=== PATIENT | female | born 1975 | race Caucasian/White ===

== ENCOUNTER 2016-08-13 10:24 | Outpatient (RCR) | payer OTHER ==
--- OUTSIDE RECORDS SUMMARY | 2016-07-01 09:02 | XMS REPORT | Continuity of Care Document ---
Author Author [facility] Organization [facility] Address Unknown Phone Unavailable Care Team Providers Care Drying Machine Operator Name Role Phone AMARILYS GALLARDO MD PCP Insurance Providers Payer Name Policy Number Subscriber Name Relationship [employer]ETNA [id number] Izzy Gonsalves Self / Same As Patient Advance Directives Directive Response Recorded Date/Time Advance Directives No 08/19/15 11:15am Organ Donor Yes 08/19/15 11:15am Problems Active Problems Medical Problem Onset Date Status Threatened miscarriage in early Unknown Acute Vaginal bleeding in patient at less than 20 weeks gestation Unknown Acute Medications Current Home Medications Medication Dose Units Route Directions Days/Qty Instructions Start Date Pnv95/Ferrous Fumarate/Fa 1 Each 1 Each Oral Daily 08/18/15 Ibuprofen 600 Mg 600 Mg Oral Every 6 Hours for Pain 60 08/19/15 Acetaminophen With Codeine 1 Each 1 Each Oral Every 4HRS as needed for Pain 15 08/19/15 Social History Social History Problem Response Recorded Date/Time Alcohol Use Denies Use 08/19/2015 11:15am Recreational Drug Use No 08/19/2015 11:15am Recent Foreign Travel N SEE [place]ADAN 01/19/2016 10:08am Sexually Transmitted Disease No 08/19/2015 11:15am Sexually Transmitted Disease No 08/19/2015 11:15am Hospital Discharge Instructions No hospital discharge instructions. Plan of Care Prescriptions See Medication Section Functional Status No functional status results. Allergies, Adverse Reactions, Alerts No known allergies. Immunizations No immunization records. Vital Signs No known vital signs results. Results Laboratory Results Test Name Result Units Flags Reference Collection Date/Time Result Date/ Time Comments White Blood Count 5.3 10^3/uL 4.3-11.0 01/19/2016 10:13am 01/19/2016 10 :19am Red Blood Count 4.10 10^6/uL L 4.35-5.85 01/19/2016 10:01/19/2016 10 :19am Hemoglobin 11.5 G/DL 11.5-16.0 01/19/2016 10:01/19/2016 10:19am Hematocrit 35 % 35-52 01/19/2016 10:01/19/2016 10:19am Mean Corpuscular Volume 86 FL 80-99 01/19/2016 10:01/19/2016 10: 19am Mean Corpuscular Hemoglobin 28 PG 25-34 01/19/2016 10:01/19/2016 10:19am Mean Corpuscular Hemoglobin Concent 33 G/DL 32-36 01/19/2016 10: 10:19am Red Cell Distribution Width 15.0 % H 10.0-14.5 01/19/2016 10:2015 10:19am Platelet Count 170 10^3/uL 130-400 01/19/2016 10:01/19/2016 10: 19am Mean Platelet Volume 9.3 FL 7.4-10.4 01/19/2016 10:01/19/2016 10: 19am Neutrophils (%) (Auto) 74 % 42-75 01/19/2016 10:01/19/2016 10: 19am Lymphocytes (%) (Auto) 17 % 12-44 01/19/2016 10:01/19/2016 10: 19am Monocytes (%) (Auto) 8 % 0-12 01/19/2016 10:01/19/2016 10:19am Eosinophils (%) (Auto) 1 % 0-10 01/19/2016 10:01/19/2016 10:19am Basophils (%) (Auto) 1 % 0-10 01/19/2016 10:1301/19/2016 10:19am Neutrophils # (Auto) 3.9 X 10^3 1.8-7.8 01/19/2016 10:1301/19/2016 10:19am Lymphocytes # (Auto) 0.9 X 10^3 L 1.0-4.0 01/19/2016 10:01/19/2016 10:19am Monocytes # (Auto) 0.4 X 10^3 0.0-1.0 01/19/2016 10:1301/19/2016 10: 19am Eosinophils # (Auto) 0.0 10^3/uL 0.0-0.3 01/19/2016 10:1301/19/2016 10:19am Basophils # (Auto) 0.0 10^3/uL 0.0-0.1 01/19/2016 10:am 01/19/2016 10 :19am Neutrophils % (Manual) 66 % 01/12/2016 9:40am 01/12/2016 4:07pm Band Neutrophils 0 % 01/12/2016 9:40am 01/12/2016 4:07pm Lymphocytes % (Manual) 25 % 01/12/2016 9:40am 01/12/2016 4:07pm Monocytes % (Manual) 6 % 01/12/2016 9:40am 01/12/2016 4:07pm Eosinophils % (Manual) 1 % 01/12/2016 9:40am 01/12/2016 4:07pm Basophils % (Manual) 0 % 01/12/2016 9:40am 01/12/2016 4:07pm Reactive Lymphocytes 2 % 01/12/2016 9:40am 01/12/2016 4:07pm Anisocytosis SLIGHT 01/12/2016 9:40am 01/12/2016 4:07pm Rouleau SLIGHT 01/12/2016 9:40am 01/12/2016 4:07pm RARE GIANT PLATELET OBSERVED ON DIFFERENTIAL. Absolute Reticulocyte Count 66 10e9/L 24-90 01/12/2016 9:40am 2015 9:57am Percent Reticulocyte Count 1.50 % 0.50-2.40 01/12/2016 9:40am 2015 9:57am Sodium Level 138 MMOL/L 135-145 01/12/2016 9:4001/12/2016 10:11am Potassium Level 4.6 MMOL/L 3.6-5.0 01/12/2016 9:40am 01/12/2016 10: 11am Chloride Level 107 MMOL/L 98-107 01/12/2016 9:40am 01/12/2016 10:11am Carbon Dioxide Level 23 MMOL/L 21-32 01/12/2016 9:40am 01/12/2016 10: 11am Anion Gap 8 MMOL/L 5-14 01/12/2016 9:40am 01/12/2016 10:11am Blood Urea Nitrogen 15 MG/DL 7-18 01/12/2016 9:40am 01/12/2016 10:11am Creatinine 0.80 MG/DL 0.60-1.30 01/12/2016 9:40am 01/12/2016 10:11am BUN/Creatinine Ratio 19 01/12/2016 9:40am 01/12/2016 10:11am Estimat Glomerular Filtration Rate > 60 01/12/2016 9:40am 2015 10:11am GFR INTERPRETIVE DATA UNITS FOR ESTIMATED GFR (eGFR): mL/min/1.73 M2 REFERENCE RANGE FOR ESTIMATED GFR (eGFR) eGFR NORMAL eGFR >60 MODERATELY DECREASED eGFR 30-59 SEVERLY DECREASED eGFR 15-29 KIDNEY FAILURE <15 (OR DIALYSIS) Glucose Level 78 MG/DL 70-105 01/12/2016 9:4001/12/2016 10:11am Calcium Level 8.8 MG/DL 8.5-10.1 01/12/2016 9:40am 01/12/2016 10:11am Total Bilirubin 0.6 MG/DL 0.1-1.0 01/12/2016 9:40am 01/12/2016 10:11am Alkaline Phosphatase 40 U/L 40-136 01/12/2016 9:40am 01/12/2016 10: 11am Aspartate Amino Transf (AST/SGOT) 17 U/L 5-34 01/12/2016 9:40am 2015 10:11am Alanine Aminotransferase (ALT/SGPT) 13 U/L 0-55 01/12/2016 9:40am 01/11 10:11am Lactate Dehydrogenase 166 U/L 125-220 01/12/2016 9:40am 01/12/2016 10: 11am Total Protein 6.6 G/DL 6.4-8.2 01/12/2016 9:40am 01/12/2016 10:11am Albumin 4.2 G/DL 3.2-4.5 01/12/2016 9:40am 01/12/2016 10:11am Ferritin 239 ng/mL H 15-150 02/26/2016 9:46am 02/27/2016 6:44am Iron Level 95 ug/dL 35-180 01/12/2016 9:40am 01/13/2016 8:45am Transferrin % Saturation 25 % 15-50 01/12/2016 9:40am 01/13/2016 8: 45am Total Iron Binding Capacity 379 ug/dL 280-380 01/12/2016 9:40am 2015 8:45am Unsaturated Iron Binding Capacity 284 ug/dL 55-450 01/12/2016 9:40am 8:46am Test performed at [facility], CLIA# [id number] Total Protein (PEP) 6.5 g/dL L 6.7-8.3 01/12/2016 9:40am 01/13/2016 8: 54am Test performed at [facility], CLIA# [id number] Protein Electrophoresis Pathologist SEE PATH REPORT 01/12/2016 9: 40am 01/15/2016 9:37am Protein Electrophoresis Note [id number] 01/12/2016 9:40am 2015 9:37am Free Sebastian Light Chains, Quant 11.84 mg/L 3.30-19.40 01/12/2016 9:40am 01/13/2016 8:54am Free Lambda Light Chains, Quant 9.35 mg/L 5.71-26.30 01/12/2016 9:40am 01/13/2016 8:54am Free Sebastian/Lambda Light Chain Ratio 1.27 ratio 0.26-1.65 01/12/2016 9: 40am 01/13/2016 8:54am Test performed at [facility], CLIA# [id number] Pathology Specimen Result FOOTNOTE 01/12/2016 9:40am 01/14/2016 3: 26pm IZZY GONSALVES Clinical Pathology Report Accession Number Collected Date/Time Verified Date/Time [id number] 01/12/16 1:00:00 PM 01/14/16 2:27:31 PM Interpretation Serum protein electrophoresis and free light chain analysis - Normal findings, with no evidence of a monoclonal gammopathy. ICD-10: E88.09 Dane Denise M.D. Pathologist (Electronic Signature) BD 01/14/2016 Performing Location: [facility], [address] [place] [address] Electrophoresis FRACTION G/DL NORMAL RANGE TOTAL PROTEIN L 6.5 6.7 - 8.3 ALBUMIN 3.9 3.5 - 4.8 ALPHA-1 0.3 0.2 - 0.5 ALPHA-2 0.6 0.5 - 1.2 BETA 0.7 0.6 - 1.2 GAMMA 0.9 0.5 - 1.5 Serum Free Light Chain Analysis FRACTION MG/L NORMAL RANGE Free Sebastian 11.84 3.30 - 19.40 Free Lambda 9.35 5.71 - 26.30 Free Ratio 1.27 0.26 - 1.65 Specimen Serum Procedures No known history of procedures. Encounters Encounter Location Arrival/Admit Date Discharge/Depart Date Attending Provider Discharged Recurring [facility] 02/26/16 9:35am 11:59pm ELIEZER ROBLES
[2016-07-01 09:14] LABS: BASOPHILS % (AUTO) 1 % (0-10); EOSINOPHILS % (AUTO) 1 % (0-10); LYMPHOCYTES % (AUTO) 29 % (12-44); MEAN CORPUSCULAR HEMOGLOBIN 32 PG (25-34); MEAN CORPUSCULAR HGB CONC 35 G/DL (32-36); MEAN CORPUSCULAR VOLUME 91 FL (80-99); MEAN PLATELET VOLUME 9.7 FL (7.4-10.4); MONOCYTES # (AUTO) 0.3 X 10^3 (0.0-1.0); MONOCYTES % (AUTO) 9 % (0-12); NEUTROPHILS % (AUTO) 60 % (42-75); PLATELET COUNT 153 10^3/uL (130-400); RED BLOOD COUNT 3.93 10^6/uL (4.35-5.85); RED CELL DISTRIBUTION WIDTH 12.4 % (10.0-14.5); WHITE BLOOD COUNT 3.3 10^3/uL (4.3-11.0)
[2016-07-01 10:01] LABS: ALANINE AMINOTRANSFERASE 14 U/L (0-55); ANION GAP 6 MMOL/L (5-14); ASPARTATE AMINO TRANSFERASE 17 U/L (5-34); BILIRUBIN,TOTAL 0.4 MG/DL (0.1-1.0); BLOOD UREA NITROGEN 10 MG/DL (7-18); BUN/CREATININE RATIO 12; CALCIUM 8.5 MG/DL (8.5-10.1); CARBON DIOXIDE 24 MMOL/L (21-32); CHLORIDE 109 MMOL/L (98-107); CREATININE SERUM 0.81 MG/DL (0.60-1.30); GFR ESTIMATED > 60; GLUCOSE 84 MG/DL (70-105); POTASSIUM 4.4 MMOL/L (3.6-5.0); SODIUM 139 MMOL/L (135-145)
[~2016-08-13 10:24] MED LIST: ACET-789 PO; FERRIC CARBOXYMALTOSE (CANCER) 750 MG in NS (IVPB) CANCER CENTER 250 ML IV SCH; IBUP-1773 PO; PNV91TAB3 PO
[2016-08-13 11:23] LABS: BASOPHILS % (AUTO) 1 % (0-10); EOSINOPHILS # (AUTO) 0.1 10^3/uL (0.0-0.3); EOSINOPHILS % (AUTO) 1 % (0-10); LYMPHOCYTES # (AUTO) 1.2 X 10^3 (1.0-4.0); LYMPHOCYTES % (AUTO) 25 % (12-44); MEAN CORPUSCULAR HEMOGLOBIN 32 PG (25-34); MEAN CORPUSCULAR HGB CONC 35 G/DL (32-36); MEAN CORPUSCULAR VOLUME 91 FL (80-99); MEAN PLATELET VOLUME 9.7 FL (7.4-10.4); MONOCYTES # (AUTO) 0.4 X 10^3 (0.0-1.0); MONOCYTES % (AUTO) 8 % (0-12); NEUTROPHILS # (AUTO) 3.2 X 10^3 (1.8-7.8); NEUTROPHILS % (AUTO) 66 % (42-75); PLATELET COUNT 152 10^3/uL (130-400); RED BLOOD COUNT 4.53 10^6/uL (4.35-5.85); RED CELL DISTRIBUTION WIDTH 13.5 % (10.0-14.5); WHITE BLOOD COUNT 4.9 10^3/uL (4.3-11.0)
== END 2016-09-29 | disposition home or self-care (01) ==
LOC: ONC 10:24
PROVIDERS: ATTEND Internal Medicine Hematology & Oncology
DX: D61.818 Other pancytopenia (principal)
CPT/HCPCS: 36415; 80053; 82728; 85025; 85045; 96365; 99213

== ENCOUNTER → 2016-09-23 | Outpatient (CLI) | payer OTHER ==
[~2016-09-23] MED LIST changes: -FERRIC CARBOXYMALTOSE (CANCER) 750 MG in NS (IVPB) CANCER CENTER 250 ML IV SCH
--- OUTSIDE RECORDS SUMMARY | 2016-09-23 07:46 | XMS REPORT | Continuity of Care Document ---
Author Author [facility] Organization [facility] Address Unknown Phone Unavailable Care Team Providers Care Computer Repair Technician Name Role Phone AMARILYS GALLARDO MD PCP Insurance Providers Payer Name Policy Number Subscriber Name Relationship [employer]ETNA [id number] Izzy Gonsalves Self / Same As Patient [...] [id number] 01/12/2016 9:40am 8:46am Test performed at [facility], CLIA# [id number] Total Protein (PEP) 6.5 g/dL L 6.7-8.3 01/12/2016 9:40am 01/13/2016 8: 54am Test performed at [facility], CLIA# [id number] Protein Electrophoresis Pathologist SEE PATH REPORT 01/12/2016 9: 40am 01/15/2016 9:37am Protein Electrophoresis Note [id number] 01/12/2016 9:40am 2015 9:37am Free [place] Light Chains, Quant 11.84 mg/L 3.30-19.40 01/12/2016 9:40am 01/13/2016 8:54am Free Lambda Light Chains, Quant 9.35 mg/L 5.71-26.30 01/12/2016 9:40am 01/13/2016 8:54am Free [place]/Lambda Light Chain Ratio 1.27 ratio 0.26-1.65 01/12/2016 9: 40am 01/13/2016 8:54am Test performed at [facility], CLIA# [id number] Pathology Specimen Result FOOTNOTE 01/12/2016 9:40am 01/14/2016 3: 26pm IZZY GONSALVES Clinical Pathology Report Accession Number Collected Date/Time Verified Date/Time [id number] 01/12/16 1:00:00 PM 01/14/16 2:27:31 PM Interpretation Serum protein electrophoresis and free light chain analysis - Normal findings, with no evidence of a monoclonal gammopathy. ICD-10: E88.09 Dane Denise M.D. Pathologist (Electronic Signature) BD 01/14/2016 Performing Location: [facility], [address] [place] [address] Electrophoresis FRACTION G/DL NORMAL RANGE TOTAL PROTEIN L 6.5 6.7 - 8.3 ALBUMIN 3.9 3.5 - 4.8 ALPHA-1 0.3 0.2 - 0.5 ALPHA-2 0.6 0.5 - 1.2 BETA 0.7 0.6 - 1.2 GAMMA 0.9 0.5 - 1.5 Serum Free Light Chain Analysis FRACTION MG/L NORMAL RANGE Free [place] 11.84 3.30 - 19.40 Free Lambda 9.35 5.71 - 26.30 Free Ratio 1.27 0.26 - 1.65 Specimen Serum Procedures No known history of procedures. Encounters Encounter Location Arrival/Admit Date Discharge/Depart Date Attending Provider Discharged Recurring [facility] 02/26/16 9:35am 11:59pm ELIEZER ROBLES
--- NOTE | 2016-09-23 20:24 | Diagnostic Imaging Report ---
INDICATION: Left breast lump EXAMINATION: Bilateral breast digital diagnostic mammogram with CAD. The current study was also evaluated with a Computer Aided Detection (CAD) system. COMPARISON: None. This is the patient's baseline study. FINDINGS: At this time she complains of a lump on the medial most portion of the left breast. A marker was placed over the area of concern but this portion of the left breast was difficult to visualize. I would recommend that ultrasound be performed for further study. The fibroglandular tissue in each breast is dense. This does limit the sensitivity of this exam. There is no primary or secondary sign of malignancy noted. There are also bilateral breast implants in place. There is no sign of an extracapsular rupture of either implant. IMPRESSION: 1. There is no mammographic abnormality to correspond to the patient's palpable lesion in the medial aspect of the left breast. However, this portion of the breast was difficult to visualize. Ultrasound would be recommended for further study. 2. There is no evidence for malignancy otherwise. 3. There are bilateral breast implants in place. The implants appear intact. ACR BI-RADS Category 0: Incomplete. (Needs additional imaging evaluation). Result letter will be mailed to the patient. Note: At least 10% of breast cancer is not imaged by mammography. Dictated by: Dictated on workstation # [id number]
--- NOTE | 2016-09-23 20:29 | Diagnostic Imaging Report ---
INDICATION: Left breast lump. EXAMINATION: Ultrasound of the left breast. FINDINGS: The diagnostic mammogram performed earlier today failed to show any sign of malignancy. There was an implant in place on the left and the implants seem to be intact. On this exam, there is no discrete solid or cystic mass evident in the region of patient's palpable abnormality. It may be that the abnormality in question is related to a fold in the implant. There is no sign of an extracapsular rupture of the implant contents into the soft tissues. Even so, it may prove worthwhile to obtain an MRI breast with and without contrast exam to better evaluate the integrity of the implant in this region. IMPRESSION: 1. There is no mass or cyst in the area of the patient's palpable abnormality. The area in question may be related to a fold in the implant. While there is no evidence for extravasation of the implant contents into the soft tissues, MRI would be recommended for further study. 2. These results were discussed with Dr. Carson. ACR BI-RADS Category 0: Incomplete. (Needs additional imaging evaluation). Result letter will be mailed to the patient. Note: At least 10% of breast cancer is not imaged by mammography. Dictated by: Dictated on workstation # [id number]
== END ==
LOC: RAD 07:43
PROVIDERS: ATTEND Obstetrics & Gynecology
DX: N63 Unspecified lump in breast (principal)
CPT/HCPCS: 76642

== ENCOUNTER 2016-10-04 08:53 | Outpatient (RCR) | payer OTHER ==
[2016-10-04 09:16] LABS: BASOPHILS % (AUTO) 1 % (0-10); EOSINOPHILS % (AUTO) 1 % (0-10); LYMPHOCYTES # (AUTO) 0.8 X 10^3 (1.0-4.0); LYMPHOCYTES % (AUTO) 25 % (12-44); MEAN CORPUSCULAR HEMOGLOBIN 32 PG (25-34); MEAN CORPUSCULAR HGB CONC 35 G/DL (32-36); MEAN CORPUSCULAR VOLUME 92 FL (80-99); MEAN PLATELET VOLUME 9.5 FL (7.4-10.4); MONOCYTES # (AUTO) 0.2 X 10^3 (0.0-1.0); MONOCYTES % (AUTO) 8 % (0-12); NEUTROPHILS # (AUTO) 2.1 X 10^3 (1.8-7.8); NEUTROPHILS % (AUTO) 66 % (42-75); PLATELET COUNT 152 10^3/uL (130-400); RED BLOOD COUNT 4.01 10^6/uL (4.35-5.85); RED CELL DISTRIBUTION WIDTH 12.6 % (10.0-14.5); WHITE BLOOD COUNT 3.2 10^3/uL (4.3-11.0)
== END 2016-12-31 13:34 | disposition home or self-care (01) ==
LOC: ONC 08:53
PROVIDERS: ATTEND Internal Medicine Hematology & Oncology
DX: D61.818 Other pancytopenia (principal)
CPT/HCPCS: 36415; 82728; 85025

== ENCOUNTER 2017-01-03 09:41 | Outpatient (RCR) | payer OTHER ==
[2017-01-03 09:50] LABS: BASOPHILS % (AUTO) 1 % (0-10); EOSINOPHILS % (AUTO) 1 % (0-10); LYMPHOCYTES % (AUTO) 27 % (12-44); MEAN CORPUSCULAR HEMOGLOBIN 31 PG (25-34); MEAN CORPUSCULAR HGB CONC 34 G/DL (32-36); MEAN CORPUSCULAR VOLUME 91 FL (80-99); MEAN PLATELET VOLUME 10.1 FL (7.4-10.4); MONOCYTES # (AUTO) 0.3 X 10^3 (0.0-1.0); MONOCYTES % (AUTO) 8 % (0-12); NEUTROPHILS # (AUTO) 2.5 X 10^3 (1.8-7.8); NEUTROPHILS % (AUTO) 64 % (42-75); PLATELET COUNT 153 10^3/uL (130-400); RED BLOOD COUNT 4.06 10^6/uL (4.35-5.85); RED CELL DISTRIBUTION WIDTH 12.4 % (10.0-14.5); WHITE BLOOD COUNT 3.9 10^3/uL (4.3-11.0)
[2017-01-03 10:09] LABS: ALANINE AMINOTRANSFERASE 11 U/L (0-55); ALBUMIN 4.1 G/DL (3.2-4.5); ANION GAP 5 MMOL/L (5-14); ASPARTATE AMINO TRANSFERASE 16 U/L (5-34); BILIRUBIN,TOTAL 0.6 MG/DL (0.1-1.0); BLOOD UREA NITROGEN 14 MG/DL (7-18); BUN/CREATININE RATIO 18; CALCIUM 8.8 MG/DL (8.5-10.1); CARBON DIOXIDE 26 MMOL/L (21-32); CHLORIDE 109 MMOL/L (98-107); GFR ESTIMATED > 60; GLUCOSE 91 MG/DL (70-105); POTASSIUM 4.2 MMOL/L (3.6-5.0); SODIUM 140 MMOL/L (135-145); TOTAL PROTEIN 6.2 G/DL (6.4-8.2)
== END 2017-04-03 | disposition home or self-care (01) ==
LOC: ONC 09:41
PROVIDERS: ATTEND Internal Medicine Hematology & Oncology
DX: D61.818 Other pancytopenia (principal)
CPT/HCPCS: 36415; 80053; 82728; 85025; 99213

== ENCOUNTER 2017-08-05 09:04 | Outpatient (RCR) | payer OTHER ==
[2017-06-27 08:22] LABS: BASOPHILS % (AUTO) 1 % (0-10); EOSINOPHILS % (AUTO) 1 % (0-10); HEMATOCRIT 38 % (35-52); LYMPHOCYTES # (AUTO) 1.1 X 10^3 (1.0-4.0); LYMPHOCYTES % (AUTO) 28 % (12-44); MEAN CORPUSCULAR HEMOGLOBIN 31 PG (25-34); MEAN CORPUSCULAR HGB CONC 34 G/DL (32-36); MEAN CORPUSCULAR VOLUME 91 FL (80-99); MEAN PLATELET VOLUME 9.8 FL (7.4-10.4); MONOCYTES # (AUTO) 0.3 X 10^3 (0.0-1.0); MONOCYTES % (AUTO) 7 % (0-12); NEUTROPHILS # (AUTO) 2.6 X 10^3 (1.8-7.8); NEUTROPHILS % (AUTO) 64 % (42-75); PLATELET COUNT 173 10^3/uL (130-400); RED CELL DISTRIBUTION WIDTH 12.7 % (10.0-14.5)
[2017-06-27 08:43] LABS: ALANINE AMINOTRANSFERASE 12 U/L (0-55); ALBUMIN 3.9 GM/DL (3.2-4.5); ALKALINE PHOSPHATASE 49 U/L (40-136); BILIRUBIN,TOTAL 0.5 MG/DL (0.1-1.0); BUN/CREATININE RATIO 21; CALCIUM 8.7 MG/DL (8.5-10.1); CARBON DIOXIDE 22 MMOL/L (21-32); CHLORIDE 108 MMOL/L (98-107); CREATININE SERUM 0.82 MG/DL (0.60-1.30); GFR ESTIMATED > 60; GLUCOSE 91 MG/DL (70-105); POTASSIUM 4.5 MMOL/L (3.6-5.0); SODIUM 139 MMOL/L (135-145); TOTAL PROTEIN 6.5 GM/DL (6.4-8.2)
[~2017-08-05 09:04] MED LIST changes: +FERRIC CARBOXYMALTOSE (CANCER) 750 MG in NS (IVPB) CANCER CENTER 250 ML IV SCH
== END 2017-09-25 | disposition home or self-care (01) ==
LOC: ONC 09:04
PROVIDERS: ATTEND Internal Medicine Hematology & Oncology
DX: D61.818 Other pancytopenia (principal)
CPT/HCPCS: 80053; 82728; 85025; 96365; 99213

== ENCOUNTER 2018-08-07 13:36 | Outpatient (RCR) | payer OTHER ==
[2018-07-07 09:01] LABS: BASOPHILS % (AUTO) 0 % (0-10); EOSINOPHILS # (AUTO) 0.1 10^3/uL (0.0-0.3); EOSINOPHILS % (AUTO) 1 % (0-10); HEMATOCRIT 38 % (35-52); LYMPHOCYTES # (AUTO) 0.9 X 10^3 (1.0-4.0); LYMPHOCYTES % (AUTO) 17 % (12-44); MEAN CORPUSCULAR HEMOGLOBIN 31 PG (25-34); MEAN CORPUSCULAR HGB CONC 34 G/DL (32-36); MEAN CORPUSCULAR VOLUME 89 FL (80-99); MEAN PLATELET VOLUME 10.3 FL (7.4-10.4); MONOCYTES # (AUTO) 0.3 X 10^3 (0.0-1.0); MONOCYTES % (AUTO) 6 % (0-12); NEUTROPHILS # (AUTO) 4.1 X 10^3 (1.8-7.8); NEUTROPHILS % (AUTO) 75 % (42-75); PLATELET COUNT 152 10^3/uL (130-400); RED CELL DISTRIBUTION WIDTH 12.8 % (10.0-14.5); WHITE BLOOD COUNT 5.5 10^3/uL (4.3-11.0)
[2018-07-07 09:30] LABS: ALANINE AMINOTRANSFERASE 10 U/L (0-55); ALBUMIN 4.4 GM/DL (3.2-4.5); ALKALINE PHOSPHATASE 42 U/L (40-136); BUN/CREATININE RATIO 17; CALCIUM 9.1 MG/DL (8.5-10.1); CARBON DIOXIDE 23 MMOL/L (21-32); CHLORIDE 107 MMOL/L (98-107); CREATININE SERUM 0.82 MG/DL (0.60-1.30); GFR ESTIMATED > 60; GLUCOSE 92 MG/DL (70-105); POTASSIUM 4.1 MMOL/L (3.6-5.0); SODIUM 138 MMOL/L (135-145); TOTAL PROTEIN 6.9 GM/DL (6.4-8.2)
== END 2018-10-05 | disposition home or self-care (01) ==
LOC: ONC 13:36
PROVIDERS: ATTEND Internal Medicine Hematology & Oncology
DX: D61.818 Other pancytopenia (principal); D50.0 Iron deficiency anemia secondary to blood loss (chronic); N92.0 Excessive and frequent menstruation with regular cycle; Z79.899 Other long term (current) drug therapy
CPT/HCPCS: 36415; 80053; 82728; 85025; 96365; 99213

== ENCOUNTER → 2018-09-18 | Outpatient (CLI) | payer OTHER ==
[~2018-09-18] MED LIST changes: -FERRIC CARBOXYMALTOSE (CANCER) 750 MG in NS (IVPB) CANCER CENTER 250 ML IV SCH
== END ==
LOC: LAB 10:19
PROVIDERS: ATTEND Family Medicine
DX: Z00.00 Encounter for general adult medical examination without abnormal findings (principal)
CPT/HCPCS: 36415; 80061; 84443

== ENCOUNTER → 2018-09-25 | Outpatient (CLI) | payer OTHER ==
--- NOTE | 2018-09-25 12:36 | Diagnostic Imaging Report ---
EXAMINATION: Pelvic ultrasound. INDICATION: Spotting between cycles. FINDINGS: There are no prior studies available for comparison. The uterus is nongravid and enlarged measuring 11.7 x 7.9 x 6.5 cm. There is no focal mass involving the uterus to suggest a fibroid. The endometrial lining is thickened measuring 16 mm (normal 5 mm or less). This finding is nonspecific. Correlation with the patient's menstrual cycle will be recommended. The left ovary is generally unremarkable. There is good blood flow and there is no sign of torsion. The right ovary could not be identified. There is a very small amount of free fluid in the cul-de-sac. There is no solid pelvic mass identified. IMPRESSION: 1. The uterus is enlarged and the endometrial lining is thickened. The thickened appearance of the endometrium is nonspecific. Recommendations as above. 2. Aside from a small amount of free fluid in the pelvis, there is no acute abnormality. 3. The right ovary is not well visualized. Dictated by: Dictated on workstation # [id number]
--- NOTE | 2018-09-26 19:06 | Diagnostic Imaging Report ---
EXAMINATION: Digital mammogram bilateral screening with 3D tomosynthesis and computer-aided detection (CAD) system. INDICATION: Screening. COMPARISON: This study was compared to the prior exam of 09/23/2016. At this time, there are no current complaints. FINDINGS: There are bilateral breast implants in place. The implants appear similar to the prior exam. There is no sign of an extracapsular rupture of either implant. The fibroglandular tissue overlying the implants is dense. This does limit the sensitivity of this exam. When compared to the previous study, there has been no significant change. There is no primary or secondary sign of malignancy noted. IMPRESSION: 1. There is no evidence of malignancy. 2. The implants appear stable. ACR BI-RADS Category 1: Negative. Result letter will be mailed to the patient. Note: At least 10% of breast cancer is not imaged by mammography. Dictated by: Dictated on workstation # [id number]
== END ==
LOC: RAD 09:40
PROVIDERS: ATTEND Obstetrics & Gynecology
DX: Z12.31 Encounter for screening mammogram for malignant neoplasm of breast (principal); N85.2 Hypertrophy of uterus; N93.8 Other specified abnormal uterine and vaginal bleeding; Z98.82 Breast implant status
CPT/HCPCS: 76830; 76856; 77067

== ENCOUNTER 2018-11-30 05:49 | Outpatient (CLI) | payer OTHER ==
[~2018-11-30] VITALS: Ht 162.6 cm; Wt 55.3 kg
== END 2018-11-30 09:32 | disposition home or self-care (01) ==
LOC: PREOP 05:49
PROVIDERS: ATTEND Obstetrics & Gynecology
DX: Z01.818 Encounter for other preprocedural examination (principal)

== ENCOUNTER 2018-12-07 06:33 | Day surgery (SDC) | payer OTHER ==
[~2018-12-07] VITALS: Ht 162.6 cm; Wt 54.5 kg
--- OUTSIDE RECORDS SUMMARY | 2018-12-07 06:37 | XMS REPORT | Continuity of Care Document ---
Author Organization Unknown Address Unknown Allergies Active Description Code Type Severity Reaction Onset Reported/Identified Relationship to Patient Clinical Status Yes No Known Drug Allergies [id number] Drug Allergy Unknown N/A 09/11/2012 Medications There is no data. Problems Date Dx Coded Attending Type Code Diagnosis Diagnosed By 07/28/1333 ELIEZER ROBLES Ot D61.818 OTHER PANCYTOPENIA 09/11/2012 Ot 786.50 09/11/2012 Ot 786.52 07/26/2015 FRANCES FORD MD Ot O20.0 07/26/2015 FRANCES FORD MD Ot Z3A.01 08/18/2015 FENECH DO, KERI S Ot O20.0 08/18/2015 FENECH DO, KERI S Ot Z3A.01 08/19/2015 FENECH DO, KERI S Ot O20.0 08/19/2015 FENECH DO, KERI S Ot Z3A.01 08/19/2015 FENECH DO, KERI S Ot O02.1 MISSED 09/01/2015 FENECH DO, KERI S Ot O20.0 09/01/2015 FENECH DO, KERI S Ot Z3A.01 09/05/2015 FENECH DO, KERI S Ot O02.1 09/05/2015 FENECH DO, KERI S Ot Z01.812 09/05/2015 FENECH DO, KERI S Ot Z11.2 01/19/2016 ELIEZER ROBLES Ot D61.818 OTHER PANCYTOPENIA 01/19/2016 ELIEZER ROBLES Ot D61.818 OTHER PANCYTOPENIA 02/20/2016 ELIEZER ROBLES Ot D61.818 OTHER PANCYTOPENIA 03/20/2016 ELIEZER ROBLES Ot D61.818 OTHER PANCYTOPENIA 04/11/2016 ELIEZER ROBLES Ot D61.818 OTHER PANCYTOPENIA 09/23/2016 ELIEZER ROBLES Ot D61.818 OTHER PANCYTOPENIA 09/24/2016 FENECH DO, KERI S Ot N63 UNSPECIFIED LUMP IN BREAST 09/29/2016 MARK ROBLESBEBO N Ot D61.818 OTHER PANCYTOPENIA 09/30/2016 TRAVIS, ELIEZER N Ot D61.818 OTHER PANCYTOPENIA 10/05/2016 TRAVIS, ELIEZER N Ot D61.818 OTHER PANCYTOPENIA 12/31/2016 TRAVIS ELIEZER N Ot D61.818 OTHER PANCYTOPENIA 01/04/2017 TRAVIS, ELIEZER N Ot D61.818 OTHER PANCYTOPENIA 04/03/2017 TRAVIS, MARKBEBO N Ot D61.818 OTHER PANCYTOPENIA 06/28/2017 TRAVIS, ELIEZER N Ot D61.818 OTHER PANCYTOPENIA 07/26/2017 TRAVIS, ELIEZER N Ot D61.818 OTHER PANCYTOPENIA 09/20/2017 TRAVIS ELIEZER N Ot D61.818 OTHER PANCYTOPENIA 09/25/2017 TRAVIS ELIEZER N Ot D61.818 OTHER PANCYTOPENIA 09/26/2017 TRAVIS ELIEZER N Ot D61.818 OTHER PANCYTOPENIA 01/25/2018 FENECH DO, KERI S Ot N63 UNSPECIFIED LUMP IN BREAST 01/25/2018 TRAVIS ELIEZER N Ot D61.818 OTHER PANCYTOPENIA 01/27/2018 TRAVIS ELIEZER N Ot D61.818 OTHER PANCYTOPENIA 04/25/2018 TRAVIS ELIEZER N Ot D50.0 IRON DEFICIENCY ANEMIA SECONDARY TO BLOO 04/25/2018 TRAVISELIEZER N Ot D61.818 OTHER PANCYTOPENIA 04/25/2018 TRAVIS, ELIEZER N Ot N92.0 EXCESSIVE AND FREQUENT MENSTRUATION WITH 04/26/2018 TRAVIS, ELIEZER N Ot D50.0 IRON DEFICIENCY ANEMIA SECONDARY TO BLOO 04/26/2018 TRAVISELIEZER N Ot N92.0 EXCESSIVE AND FREQUENT MENSTRUATION WITH 07/24/2018 TRAVISELIEZER N Ot D61.818 OTHER PANCYTOPENIA 08/04/2018 TRAVIS, ELIEZER N Ot D61.818 OTHER PANCYTOPENIA 09/18/2018 FENECH DO, KERI S Ot N63 UNSPECIFIED LUMP IN BREAST 09/18/2018 TRAVIS, BOBAN N Ot D61.818 OTHER PANCYTOPENIA 09/20/2018 JONATHANNDER DOSERGIO S Ot Z00.00 ENCNTR FOR GENERAL ADULT MEDICAL EXAM W/ 09/25/2018 BERTAKERI MONZON DO Ot N63 UNSPECIFIED LUMP IN BREAST 09/25/2018 ELIEZER ROBLES Ot D61.818 OTHER PANCYTOPENIA 09/25/2018 JONATHANNDER DOSERGIO Ot Z00.00 ENCNTR FOR GENERAL ADULT MEDICAL EXAM W/ 09/26/2018 BERTAECH DOKERI Ot N85.2 HYPERTROPHY OF UTERUS 09/26/2018 [facility] N93.8 OTHER SPECIFIED ABNORMAL UTERINE AND VAG 09/26/2018 KERI PACE DO Ot Z12.31 ENCNTR SCREEN MAMMOGRAM FOR MALIGNANT NE 09/26/2018 KERI PACE DO Ot Z98.82 BREAST IMPLANT STATUS 10/05/2018 ELIEZER ROBLES Ot D50.0 IRON DEFICIENCY ANEMIA SECONDARY TO BLOO 10/05/2018 ELIEZER ROBLES Ot D61.818 OTHER PANCYTOPENIA 10/05/2018 ELIEZER ROBLES Ot N92.0 EXCESSIVE AND FREQUENT MENSTRUATION WITH 10/05/2018 ELIEZER ROBLES Ot Z79.899 OTHER [facility] (CURRENT) DRUG THERAPY 10/06/2018 ELIEZER ROBLES Ot D50.0 IRON DEFICIENCY ANEMIA SECONDARY TO BLOO 10/06/2018 ELIEZER ROBLES Ot D61.818 OTHER PANCYTOPENIA 10/06/2018 ELIEZER ROBLES Ot N92.0 EXCESSIVE AND FREQUENT MENSTRUATION WITH 10/06/2018 ELIEZER ROBLES Ot Z79.899 OTHER [facility] (CURRENT) DRUG THERAPY 11/30/2018 BERTANICOLÁS DOKERI Ot Z01.818 ENCOUNTER FOR OTHER PREPROCEDURAL EXAMIN 12/01/2018 BERTAECH KERI MIRANDA Ot Z01.818 ENCOUNTER FOR OTHER PREPROCEDURAL EXAMIN 12/07/2018 BERTAECH DOKERI Ot N63 UNSPECIFIED LUMP IN BREAST 12/07/2018 DAVONER DOSERGIO S Ot Z00.00 ENCNTR FOR GENERAL ADULT MEDICAL EXAM W12/07/2018 ELIEZER ROBLES Ot D61.818 OTHER PANCYTOPENIA Procedures There is no data. Results Test Result Range Lipid 1996 panel - 09/18/18 10:28 Serum or plasma triglyceride measurement (mass/volume) 65 mg/dL <150 Serum or plasma cholesterol measurement (mass/volume) 136 mg/dL < 200 Serum or plasma cholesterol in HDL measurement (mass/volume) 56 mg/ dL 40-60 Cholesterol in LDL [mass/volume] in serum or plasma by direct assay 60 mg/dL 1-129 Serum or plasma cholesterol in VLDL measurement (mass/volume) 13 mg/ dL 5-40 THYROID STIMULATING HORMONE - 09/18/18 10:28 THYROID STIMULATING HORMONE 1.70 u[iU]/mL 0.35-4.94 Encounters ACCT No. Visit Date/Time Discharge Status Pt. Type Provider Facility Loc./Unit Complaint [id number] 11/30/2018 05:49:00 11/30/2018 09:32:00 DIS Outpatient BERTAKERI MONZON DO S [facility] PREOP ROBOTIC HYSTERECTOMY [id number] 10/06/2018 00:10:00 10/06/2018 23:59:59 CLS Preadmit ELIEZER ROBLES [facility] ONC [id number] 08/07/2018 13:36:00 10/05/2018 00:01:00 DIS Outpatient ELIEZER ROBLES [facility] ONC [id number] 09/25/2018 09:40:00 09/25/2018 23:59:59 CLS Outpatient KERI PACE DO S [facility] RAD AUB [id number] 09/18/2018 10:19:00 09/18/2018 23:59:59 CLS Outpatient LISY SERGIO S [facility] LAB YEARLY LAB [id number] 01/25/2018 08:25:00 04/25/2018 00:01:00 DIS Outpatient ELIEZER ROBLES [facility] ONC [id number] 08/05/2017 09:04:00 09/25/2017 00:01:00 DIS Outpatient ELIEZER ROBLES [facility] ONC [id number] 01/03/2017 09:41:00 04/03/2017 00:01:00 DIS Outpatient ELIEZER ROBLES [facility] ONC [id number] 10/04/2016 08:53:00 12/31/2016 13:34:00 DIS Outpatient ELIEZER ROBLES [facility] ONC [id number] 08/13/2016 10:24:00 09/29/2016 00:01:00 DIS Outpatient ELIEZER ROBLES [facility] ONC [id number] 09/23/2016 07:43:00 09/23/2016 23:59:59 CLS Outpatient KERI PACE DO [facility] RAD BREAST LUMP ON LT SIDE AT 4 O'CLOCK POSITION [id number] 02/26/2016 09:35:00 04/11/2016 00:01:00 DIS Outpatient ELIEZER ROBLES [facility] ONC [id number] 08/19/2015 10:34:00 08/19/2015 14:35:00 DIS Outpatient KERI PACE DO [facility] SDC MISSED [id number] 08/18/2015 05:49:00 08/18/2015 23:59:59 CLS Outpatient KERI PACE DO [facility] PREOP [id number] 08/13/2015 13:52:00 08/13/2015 23:59:59 CLS Outpatient KERI PACE DO [facility] RAD [id number] 07/26/2015 12:20:00 07/26/2015 14:29:00 DIS Emergency FRANCES FORD MD [facility] ER [id number] 12/07/2018 06:33:00 ACT Outpatient KERI PACE DO [facility] SDC ABNORMAL UTERINE BLEEDING [id number] 09/11/2012 20:05:00 Document Registration
[2018-12-07] MEDS ORDERED: BUPIVACAINE 0.25% 30 ML (SENSORCAINE) VIAL ONE (06:38)
[2018-12-07 06:50] VITALS: BP 99/68
[2018-12-07] MEDS: LACTATED RINGERS 1,000 ML IV ONE ×2 (06:55→09:29)
[2018-12-07] MEDS: LACTATED RINGERS 1,000 ML IV PRN ×2 (06:55→07:48)
[2018-12-07] MEDS ORDERED: ceFAZolin INJECTION 1,000 MG in WATER (STERILE) FOR INJECTION 10 ML IV ONE (07:00)
[2018-12-07] MEDS ORDERED: metroNIDAZOLE 500MG/100ML IVPB 100 ML IV ONE (07:00)
[2018-12-07] MEDS ORDERED: DEXAMETHASONE 10 MG/ML (DECADRON) 1 ML VIAL ONE (07:06)
[2018-12-07] MEDS ORDERED: MIDAZOLAM 2 MG/2 ML (VERSED) VIAL ONE (07:06)
[2018-12-07] MEDS ORDERED: NEOSTIGMINE 1 MG/ML 5 ML SYRINGE ONE (07:06)
[2018-12-07] MEDS ORDERED: ONDANSETRON 4 MG/2 ML (SDV) Z0FRAN ONE ×2 (07:06→09:48)
[2018-12-07] MEDS ORDERED: fentaNYL INJECTION 100 MCG/2 ML AMP ONE ×2 (07:06→09:15)
[2018-12-07] MEDS ORDERED: KETOROLAC 30 MG/ML VIAL ONE (07:06)
[2018-12-07] MEDS ORDERED: proPOfol 200 MG/20 ML (DIPRIVAN) VIAL IV ONE (07:06)
[2018-12-07] MEDS ORDERED: ROCURONIUM 10 MG/ML 5 ML SYRINGE IV ONE (07:06)
[2018-12-07] MEDS ORDERED: GLYCOPYRROLATE 0.2 MG/ML (ROBINUL) 2 ML VIAL ONE (07:06)
[2018-12-07] MEDS ORDERED: LIDOCAINE PF 2% 5 ML (XYLOCAINE) VIAL ONE (07:06)
[2018-12-07] MEDS ORDERED: SEVOFLURANE (ULTANE) 15 ML INHAL SOLN ONE ×3 (07:09→09:14)
[2018-12-07] MEDS ORDERED: LACTATED RINGERS 1,000 ML IV SCH (07:14)
[2018-12-07] MEDS ORDERED: CHLORASEPTIC LOZENGE MM PRN (07:15)
[2018-12-07] MEDS ORDERED: DOCUSATE SODIUM 100 MG (COLACE) CAP PO PRN (07:15)
[2018-12-07] MEDS ORDERED: ONDANSETRON 4 MG/2 ML (SDV) Z0FRAN IV PRN (07:15)
[2018-12-07] MEDS ORDERED: ANTACID SUSP 30 ML UDC (MYLANTA) PO PRN (07:15)
[2018-12-07] MEDS ORDERED: SIMETHICONE 80 MG (MYLICON) CHEW PO PRN (07:15)
[2018-12-07] MEDS ORDERED: HYDROcodone/APAP 7.5 MG/325 MG (LORTAB, LORCET PLUS) TABLET PO PRN (07:15)
[2018-12-07] MEDS ORDERED: ZOLPIDEM 5 MG (AMBIEN) TAB PO PRN (07:15)
[2018-12-07 07:16] LABS: BASOPHILS % (AUTO) 0 % (0-10); EOSINOPHILS % (AUTO) 1 % (0-10); HEMATOCRIT 37 % (35-52); HEMOGLOBIN 13.1 G/DL (11.5-16.0); LYMPHOCYTES # (AUTO) 0.7 X 10^3 (1.0-4.0); LYMPHOCYTES % (AUTO) 12 % (12-44); MEAN CORPUSCULAR HEMOGLOBIN 32 PG (25-34); MEAN CORPUSCULAR HGB CONC 36 G/DL (32-36); MEAN CORPUSCULAR VOLUME 91 FL (80-99); MEAN PLATELET VOLUME 9.8 FL (7.4-10.4); MONOCYTES # (AUTO) 0.5 X 10^3 (0.0-1.0); MONOCYTES % (AUTO) 8 % (0-12); NEUTROPHILS # (AUTO) 4.8 X 10^3 (1.8-7.8); NEUTROPHILS % (AUTO) 79 % (42-75); PLATELET COUNT 171 10^3/uL (130-400); RED CELL DISTRIBUTION WIDTH 12.3 % (10.0-14.5)
--- NOTE | 2018-12-07 07:16 | Progress Note-Pre Operative ---
Pre-Operative Progress Note H&P Reviewed The H&P was reviewed, patient examined and no changes noted. Date Seen by Provider: Dec 07, 2018 Time Seen by Provider: 07:05 Date H&P Reviewed: Dec 07, 2018 Time H&P Reviewed: 07:00 Pre-Operative Diagnosis: AUB, Enlarged uterus KERI PACE DO Dec 07, 2018 07:16
[2018-12-07] MEDS ORDERED: IBUP-844 PO (07:19)
[2018-12-07] MEDS ORDERED: SIME80TA16 PO (07:19)
[2018-12-07] MEDS ORDERED: HYDR-34 PO (07:19)
[2018-12-07] MEDS ORDERED: DOCU100C37 PO (07:19)
--- NOTE | 2018-12-07 07:20 | Discharge Inst-Women's Service ---
Discharge Inst-Women's Serv Depart Medication/Instructions New, Converted or Re-Newed RX: RX on Chart Consults/Follow Up Additional Follow Up: Yes Orders/Referrals Dr. Carson in 7-10 days and in 8 weeks Activity Activity: Activity as Tolerated Driving Instructions: No Driving for 1 Week NO SMOKING: NO SMOKING Nothing Inside Vagina: No Douching, No [place], No Tampons Diet Discharge Diet: No Restrictions Symptoms to Report to : Bleeding Excessive, Pain Increased, Fever Over 101 Degrees F, Vaginal Bleeding Increase, Questions/Concerns For Any Problems or Questions: Contact Your Physician Skin/Wound Care Infection Signs and Symptoms: Increased Redness, Foul Odor of Wound, Increased Drainage, Skin Itchy or Has a Rash, Increased Swelling, Temperature Above 101 F Operative Area Clean and Dry: Keep Incision Clean/Dry Stitches/Abigail/Dermabond: Dermabond, Care of Stitches Bathing Instructions: KERI Leone DO Dec 07, 2018 07:20
[2018-12-07] MEDS: KETOROLAC 30 MG/ML VIAL IV PRN ×2 (09:15→16:10)
[2018-12-07] MEDS ORDERED: ONDANSETRON 4 MG/2 ML (SDV) Z0FRAN IVP PRN (09:45)
[2018-12-07] MEDS ORDERED: morphine INJ 10 MG/ML 1ML (SYR OR VIAL) IVP ONE (09:45)
[2018-12-07] MEDS ORDERED: HYDROmorphone 2 MG/ML VIAL (DILAUDID) IV ONE (09:45)
[2018-12-07] MEDS ORDERED: morphine INJ 10 MG/ML 1ML (SYR OR VIAL) ONE (09:48)
--- NOTE | 2018-12-07 10:30 | NUR ---
pt transferred to room 305 via bed with PACU staff @ side. pt awake, talking. report received from FRANCOIS Adhikari. care assumed of pt.
[2018-12-07 10:44] VITALS: BP 98/55
--- NOTE | 2018-12-07 10:44 | NUR ---
initial assessment completed, see interventions for further. abd lap-sites x3, D/I. Band-Aids covering. rodriguez to DD with small amount dark, yellow urine noted in chamber. v-pad in place. SCD's to LE's. @ side. POC reviewed, states understanding. call light within reach.
--- NOTE | 2018-12-07 12:38 | NUR ---
Rx's given to to take to pharmacy of choice.
--- NOTE | 2018-12-07 12:40 | NUR ---
pt awake, on phone. no c/o's voiced.
--- NOTE | 2018-12-07 12:54 | Anesthesia-General Post-Op ---
General Patient Condition Mental Status/LOC: Same as Preop Cardiovascular: Satisfactory Nausea/Vomiting: Absent Respiratory: Satisfactory Pain: Controlled Complications: Absent Post Op Complications Complications None Follow Up Care/Instructions Patient Instructions None needed. Anesthesia/Patient Condition Patient Condition Patient is doing well, no complaints, stable vital signs, no apparent adverse anesthesia problems. No complications reported per nursing. AMADEO DU CRNA Dec 07, 2018 12:54
--- NOTE | 2018-12-07 12:56 | OPERATIVE REPORT ---
DATE OF SERVICE: PREOPERATIVE DIAGNOSES: 1. A 43-year-old female with abnormal uterine bleeding. 2. Uterine enlargement. POSTOPERATIVE DIAGNOSES: 1. A 43-year-old female with abnormal uterine bleeding. 2. Uterine enlargement. 3. Endometriosis of the pelvic peritoneum. PROCEDURES PERFORMED: Robotic-assisted total laparoscopic hysterectomy with bilateral salpingectomy > 250gms SURGEON: John Carson DO. ANESTHESIA: General endotracheal. ESTIMATED BLOOD LOSS: 50 mL. URINE OUTPUT: 100 mL clear at the end of the procedure. FLUIDS: 1400 mL of lactated Ringer solution. FINDINGS: Bulky hyperemic appearing uterus that is edematous and evidence of peritoneal endometriosis including posterior cul-de-sac, Devang-Masters windows. Grossly normal appearing bilateral ovaries and fallopian tubes. Adhesions of the small bowel to the anterior abdominal wall from previous surgeries. SPECIMEN SENT: Uterus and bilateral fallopian tubes. INDICATIONS FOR PROCEDURE: This 43-year-old female is a patient, who had been seen in my office for the past three to four years with persistent issues with heavy bleeding. Her most recent incident resulted in bleeding through her underwear and entered her clothes in a public place, which was very embarrassing for the patient and despite more conservative measures that we have taken in the past, none of them have been able to either be tolerated by the patient or to work. She is very frustrated and wants to proceed with removal of the uterus, which she knows will stop periods altogether. I discussed with the patient the risks of the procedure including risk of bleeding, infection, damage to surrounding structures including, but not limited to bowel, bladder, ureter, kidneys and postoperative complications that may occur, risk from anesthesia, postoperative recovery timeframe. After all of her questions were answered, consent was obtained in the preoperative area and the patient was taken to the operating room. OPERATIVE REPORT IN DETAIL: Once in the operating room, general anesthesia was found to be adequate. She was placed in a dorsal lithotomy position, prepped and draped in a normal sterile fashion. A timeout was performed and anesthesia was administered adequately after which a Pozo catheter was placed using sterile technique. A weighted speculum was inserted in the patient's vagina. A right angle retractor used to visualize the cervix, which was grasped at 12 o'clock position using a long Allis clamp. A 0 Vicryl suture was then placed through the anterior lip of the cervix. An Allis clamp was removed. The suture was then used as my retraction. I then gently sound the uterine cavity and depth was found to be 8 cm. I then gently dilated the uterus using Hegar dilators to maximum dilatation of approximately 4 mm, which allows me to place a Olga uterine manipulator with an 8 cm tip and a 3.5 cm colpotomy ring. I placed the uterine manipulator into the endometrial cavity deploying the balloon and advancing the colpotomy ring around the vaginal fornix. Once this was in place, I am able to appreciate excellent manipulation on bimanual examination. I then performed change of gloves and turned my attention to the abdomen where infraumbilically I infiltrated this using 0.25% Marcaine and made an 8 mm incision and directed the Veress needle through the incision. Intraperitoneal placement was confirmed using the saline drop test. I did proceed with insufflation using CO2 gas and opening pressure of 2 mmHg was noted. I proceeded to maximum pressure of 15 mmHg, at which point I removed the Veress needle and I introduced an 8 mm blunt da Lakisha camera trocar. Once this was in placed, I was able to confirm intraperitoneal placement using the da Lakisha laparoscope. I then had the patient placed in a steep Trendelenburg and I was able to visualize all of my findings as demonstrated in my findings above. I placed two lateral trocars, these were both 8 mm trocars approximately 8 cm lateral to my infraumbilical trocar. Once these were in place, under direct visualization of the laparoscope, I started by laparoscopically taking down the adhesions of the small bowel to the anterior abdominal wall. This was done carefully without any cautery or heat and blunt dissection. Once this was done, I then brought in the da Lakisha robot and docked it in the appropriate fashion. Using the fenestrated bipolar graspers in the left hand and the monopolar amilcar in the right hand, I performed the following dissection bilaterally. I started at the uteroovarian ligament, bipolar cauterized and transected this using the grasper and transected it using the vessel sealer. I then created a window in the mesosalpinx and took this laterally using the monopolar amilcar amputating the fallopian tube from the mesosalpinx. I was then able to grasp the round ligament, which I bipolar cauterized and transected using the monopolar amilcar. I then took the broad ligament down using monopolar amilcar to the level of the lower uterine segment, at which point I the anterior and posterior leaflets of the broad ligament. The anterior leaflet dissection was taken down to the anterior vaginal fornix. The posterior leaflet was taken around to the posterior vaginal fornix. This allowed me to skeletonize the uterine vessels laterally, which I then bipolar cauterized and transected using the monopolar amilcar. I then created a colpotomy at 12 o'clock position using monopolar amilcar and took this circumferentially around the vaginal fornix amputating the cervix away from the vagina. The entire specimen was then removed through the vagina. I then closed the vaginal cuff using 2-0 Vicryl suture in a [id number] fashion colposuspending the uterosacral ligaments. I then closed the remainder of the vaginal cuff using 2-0 V-Loc in a running fashion, after which there was no active bleeding noted from any of my dissection planes. I then undocked the da Lakisha robot and proceeded with the remainder of the case laparoscopically. I copiously irrigated the pelvis again using normal saline. Once again, there was no active bleeding noted from any of my dissection planes. I placed Surgiflo hemostatic agent over all my planes of dissection after which the patient was taken out of steep Trendelenburg. I removed the lateral trocars under direct visualization of the laparoscope. The infraumbilical trocar was left in place to release insufflation and to introduce 10 mL of 0.25% Marcaine into the peritoneal cavity for postoperative pain control. I then removed this trocar site as well. The skin was then reapproximated using a 4-0 Monocryl in interrupted subcuticular stitches. Dermabond was applied to the incisions and Band-Aids were placed over the incisions as well. The Pozo catheter was left in place. The patient tolerated the procedure well and was taken to the recovery area in stable condition. Lap and sponge counts were correct at the end of procedure. Instrument count was correct as well. One gram of Ancef and 500 mg of Flagyl were given postoperatively for infection prophylaxis. Job ID: [id number] DocumentID: [id number] Dictated Date: 12/07/2018 10:12:23 Trauma Program Manager Date: 12/07/2018 12:55:21 Dictated By: DO PAIGE TINEO
--- NOTE | 2018-12-07 13:30 | NUR ---
eating regular diet. @ side.
--- NOTE | 2018-12-07 13:49 | NUR ---
rodriguez catheter dc'd per Dr's orders. 100cc dark, yellow urine noted in chamber.
--- NOTE | 2018-12-07 13:50 | NUR ---
assisted up to BR. unable to void. red-care offered. v-pad and panties in place.
[2018-12-07 14:00] VITALS: BP 99/54
--- NOTE | 2018-12-07 14:00 | NUR ---
vs taken. no c/o's voiced. will cont to monitor.
--- NOTE | 2018-12-07 14:28 | NUR ---
RT notified of IS order.
--- NOTE | 2018-12-07 16:56 | NUR ---
Alli Singletary here. dismissal orders received.
--- NOTE | 2018-12-07 17:20 | NUR ---
pt up to BR by self. +void 200cc urine. requesting dismissal to home. IV converted to HL.
--- NOTE | 2018-12-07 17:50 | NUR ---
dismissal instructions given, voices understanding. reviewed follow up appointments and Rx's. reviewed medication administration schedule and dosages. signature page signed, placed on chart. IV site [email or web address]. Addendum: 12/07/18 at 1831 by DANIA MAURER RN pt ambulated to private vehicle with this RN and @ side. pt stable with no sx's of distress noted.
[2018-12-08] MEDS ORDERED: IBUPROFEN 600 MG (MOTRIN) TAB PO PRN
== END 2018-12-07 17:50 | disposition home or self-care (01) ==
LOC: SDC 06:33 → WS 10:30 → SDC 17:50
PROVIDERS: ATTEND Obstetrics & Gynecology
DX: N93.8 Other specified abnormal uterine and vaginal bleeding (principal); N84.0 Polyp of corpus uteri; D25.1 Intramural leiomyoma of uterus; N83.8 Other noninflammatory disorders of ovary, fallopian tube and broad ligament; N80.3 Endometriosis of pelvic peritoneum; D50.0 Iron deficiency anemia secondary to blood loss (chronic)
CPT/HCPCS: 36415; 84703; 85025; 86850; 86900; 86901; 87081; 88307; 94664

== ENCOUNTER 2019-07-12 08:53 | Outpatient (RCR) | payer OTHER ==
[2019-07-05 08:18] LABS: BASOPHILS % (AUTO) 1 % (0-10); EOSINOPHILS # (AUTO) 0.1 10^3/uL (0.0-0.3); EOSINOPHILS % (AUTO) 2 % (0-10); HEMATOCRIT 40 % (35-52); HEMOGLOBIN 13.7 G/DL (11.5-16.0); LYMPHOCYTES # (AUTO) 1.1 X 10^3 (1.0-4.0); LYMPHOCYTES % (AUTO) 24 % (12-44); MEAN CORPUSCULAR HEMOGLOBIN 31 PG (25-34); MEAN CORPUSCULAR HGB CONC 34 G/DL (32-36); MEAN CORPUSCULAR VOLUME 90 FL (80-99); MEAN PLATELET VOLUME 9.5 FL (7.4-10.4); MONOCYTES # (AUTO) 0.4 X 10^3 (0.0-1.0); MONOCYTES % (AUTO) 8 % (0-12); NEUTROPHILS # (AUTO) 2.9 X 10^3 (1.8-7.8); NEUTROPHILS % (AUTO) 66 % (42-75); PLATELET COUNT 174 10^3/uL (130-400); WHITE BLOOD COUNT 4.5 10^3/uL (4.3-11.0)
[2019-07-05 08:36] LABS: ALANINE AMINOTRANSFERASE 11 U/L (0-55); ALBUMIN 4.4 GM/DL (3.2-4.5); ALKALINE PHOSPHATASE 46 U/L (40-136); BILIRUBIN,TOTAL 0.6 MG/DL (0.1-1.0); BUN/CREATININE RATIO 15; CALCIUM 8.9 MG/DL (8.5-10.1); CARBON DIOXIDE 24 MMOL/L (21-32); CHLORIDE 107 MMOL/L (98-107); CREATININE SERUM 0.81 MG/DL (0.60-1.30); GFR ESTIMATED > 60; GLUCOSE 76 MG/DL (70-105); POTASSIUM 4.1 MMOL/L (3.6-5.0); SODIUM 140 MMOL/L (135-145); TOTAL PROTEIN 6.9 GM/DL (6.4-8.2)
[~2019-07-12 08:53] MED LIST changes: +DOCU100C37 PO; +HYDR-34 PO; +IBUP-844 PO; +SIME80TA16 PO
== END 2019-10-03 | disposition home or self-care (01) ==
LOC: ONC 08:53
PROVIDERS: ATTEND Internal Medicine Hematology & Oncology
DX: D50.0 Iron deficiency anemia secondary to blood loss (chronic) (principal); N92.0 Excessive and frequent menstruation with regular cycle; Z90.711 Acquired absence of uterus with remaining cervical stump
CPT/HCPCS: 36415; 80053; 82728; 83540; 85025; 99213

== ENCOUNTER 2020-06-25 09:32 | Outpatient (RCR) | payer OTHER ==
[2020-06-20 08:51] LABS: BASOPHILS % (AUTO) 1 % (0-10); EOSINOPHILS % (AUTO) 1 % (0-10); HEMATOCRIT 37 % (35-52); HEMOGLOBIN 12.5 g/dL (11.5-16.0); LYMPHOCYTES % (AUTO) 24 % (12-44); MEAN CORPUSCULAR HEMOGLOBIN 31 pg (25-34); MEAN CORPUSCULAR HGB CONC 34 g/dL (32-36); MEAN CORPUSCULAR VOLUME 91 fL (80-99); MONOCYTES # (AUTO) 0.3 10^3/uL (0.0-1.0); MONOCYTES % (AUTO) 8 % (0-12); NEUTROPHILS # (AUTO) 2.8 10^3/uL (1.8-7.8); NEUTROPHILS % (AUTO) 66 % (42-75); PLATELET COUNT 147 10^3/uL (130-400); WHITE BLOOD COUNT 4.2 10^3/uL (4.3-11.0)
[2020-06-20 09:14] LABS: ALANINE AMINOTRANSFERASE 13 U/L (0-55); ALBUMIN 3.9 GM/DL (3.2-4.5); ALKALINE PHOSPHATASE 43 U/L (40-136); BILIRUBIN,TOTAL 0.8 MG/DL (0.1-1.0); BUN/CREATININE RATIO 19; CALCIUM 8.4 MG/DL (8.5-10.1); CARBON DIOXIDE 22 MMOL/L (21-32); CHLORIDE 108 MMOL/L (98-107); CREATININE SERUM 0.79 MG/DL (0.60-1.30); GFR ESTIMATED > 60; GLUCOSE 94 MG/DL (70-105); POTASSIUM 4.1 MMOL/L (3.6-5.0); SODIUM 139 MMOL/L (135-145); TOTAL PROTEIN 6.3 GM/DL (6.4-8.2)
== END 2020-09-18 | disposition home or self-care (01) ==
LOC: ONC 09:32
PROVIDERS: ATTEND Internal Medicine Hematology & Oncology
DX: D64.9 Anemia, unspecified (principal)
CPT/HCPCS: 80053; 82728; 85025; 99213

== ENCOUNTER → 2020-12-22 | Outpatient (CLI) | payer OTHER ==
--- NOTE | 2020-12-22 10:14 | Diagnostic Imaging Report ---
INDICATION: Routine screening. Comparison is made with prior mammogram 09/25/2018 and 09/23/2016. 2-D and 3-D bilateral screening mammography was performed with CAD. Patient's bilateral subpectoral breast implants. Implant contours appear stable. There is no definite evidence of extracapsular rupture. Both breasts are heterogeneously dense, limiting the sensitivity of mammography. The parenchymal pattern is stable. No mass or malignant appearing microcalcifications are seen. Axillae are unremarkable. IMPRESSION: BI-RADS Category 2 No mammographic features suspicious for malignancy are identified. ACR BI-RADS Category 2: Benign findings. Result letter will be mailed to the patient. Note: At least 10% of breast cancer is not imaged by mammography. Dictated by: Dictated on workstation # [id number]
== END ==
LOC: RAD 07:30
PROVIDERS: ATTEND Family Medicine
DX: Z12.31 Encounter for screening mammogram for malignant neoplasm of breast (principal)
CPT/HCPCS: 77063; 77067

== ENCOUNTER → 2022-05-18 | Outpatient (CLI) | payer OTHER ==
--- NOTE | 2022-05-18 13:39 | Diagnostic Imaging Report ---
INDICATION: Left breast pain. Patient has implants. FINDINGS: Sonographic interrogation in the area of pain in the lower inner left breast was performed. No sonographic abnormality is seen. No discrete mass or fluid collection is identified. There appears to be some folding of the implant. IMPRESSION: No sonographic abnormality is seen. If symptoms persist, consideration could be given to performance of a diagnostic mammogram. ACR BI-RADS Category 2: Benign findings. Dictated by: Dictated on workstation # [id number]
== END ==
LOC: RAD 12:30
PROVIDERS: ATTEND Nurse Practitioner Family
DX: N64.4 Mastodynia (principal); Z98.82 Breast implant status
CPT/HCPCS: 76641